=== PATIENT | female | born 1985 | race Caucasian/White ===

== ENCOUNTER 2017-01-15 21:28 | Emergency (ER) | payer OTHER ==
[~2017-01-15] VITALS: Ht 152.4 cm; Wt 70.3 kg
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
[2017-01-15] MEDS ORDERED: diphenhydrAMINE HCL 50 MG/ML VIAL IM STA (22:20)
[2017-01-15] MEDS ORDERED: CEPHALEXIN MONOHYDRATE 500 MG CAPSULE PO STA (22:20)
[2017-01-15] MEDS ORDERED: SULFAMETH/TRIMETH 800/160 MG 1 UDTAB TABLET PO STA (22:20)
[2017-01-15] MEDS ORDERED: SULFAMETH/TRIMETH 800/160 MG 1 UDTAB TABLET PO ONE (22:26)
[2017-01-15] MEDS ORDERED: predniSONE 20 MG TABLET ONE (22:26)
[2017-01-15] MEDS ORDERED: CEPHALEXIN MONOHYDRATE 500 MG CAPSULE PO ONE (22:26)
[2017-01-15] MEDS ORDERED: diphenhydrAMINE HCL 50 MG/ML VIAL ONE (22:26)
[2017-01-15] MEDS ORDERED: predniSONE 20 MG TABLET PO ONE (22:30)
--- NOTE | 2017-01-15 22:41 | NUR ---
Patient discharged to home in stable condition. Written and verbal after care instructions given. Patient verbalizes understanding of instruction.
[2017-01-15 22:48] VITALS: BP 115/69
== END 2017-01-15 22:51 | disposition home or self-care (01) ==
LOC: ER 21:28
DX: S80.862A Insect bite (nonvenomous), left lower leg, initial encounter (principal); S80.861A Insect bite (nonvenomous), right lower leg, initial encounter; L03.116 Cellulitis of left lower limb; L03.115 Cellulitis of right lower limb; W57.XXXA Bitten or stung by nonvenomous insect and other nonvenomous arthropods, initial encounter; Y93.89 Activity, other specified; Y92.89 Other specified places as the place of occurrence of the external cause; Y99.8 Other external cause status
CPT/HCPCS: 96372; 99284; A4606; J1200; J7512; Z7610

== ENCOUNTER 2017-07-07 10:38 | Emergency (ER) | payer OTHER ==
[~2017-07-07] VITALS: Ht 157.5 cm; Wt 66.2 kg
--- NOTE | 2017-07-07 10:56 | NUR ---
PT TO ED DT LOWER ABDOMINAL PAIN, SHARP, 6/10, NON RADIATING, DENIES VAGINA BLEEDING. NO HEMATURIA NOR DYSURIA. VSS
[2017-07-07] MEDS ORDERED: KETOROLAC TROMETHAMINE INJ 30 MG/ML VIAL IV ONE (11:30)
[2017-07-07] MEDS ORDERED: KETOROLAC TROMETHAMINE 15 MG/ML VIAL ONE (11:39)
[2017-07-07 11:40] LABS: BASOPHILS % (AUTO) 0.4 % (0.0-2.0); EOSINOPHILS # (AUTO) 0.1 /CMM (0.0-0.7); EOSINOPHILS % (AUTO) 1.5 % (0.0-6.0); HEMATOCRIT 44 % (33-45); HEMOGLOBIN 14.8 g/dL (11.5-14.8); LYMPHOCYTES # (AUTO) 1.6 /CMM (0.8-4.8); LYMPHOCYTES % (AUTO) 26.8 % (20.0-44.0); MEAN CORPUSCULAR HEMOGLOBIN 29 PG (26.0-33.0); MEAN CORPUSCULAR HGB CONC 34 g/dl (31.0-36.0); MEAN CORPUSCULAR VOLUME 87 fL (82-100); MONOCYTES # (AUTO) 0.4 /CMM (0.1-1.30); MONOCYTES % (AUTO) 6.9 % (2.0-12.0); NEUTROPHILS # (AUTO) 3.9 /CMM (1.8-8.9); NEUTROPHILS % (AUTO) 64.4 % (43.0-81.0); PLATELET COUNT (AUTO) 287 /CMM (150-450); RED BLOOD CELL COUNT(AUTO) 5.07 MIL/uL (4.0-5.2)
[2017-07-07 11:42] LABS: APPEARANCE,URINE Clear (CLEAR); BILIRUBIN,URINE Negative (NEGATIVE); BLOOD, URINE Trace-intact Ery/uL (NEGATIVE); COLOR,URINE Yellow (YELLOW); KETONES,URINE Negative (NEGATIVE); LEUKOCYTE ESTERASE ,URINE Trace (NEGATIVE); NITRITE, URINE Negative (NEGATIVE); PROTEIN,URINE Negative (NEGATIVE); UGLUCOSE Negative (NEGATIVE); UROBILINOGEN,URINE 0.2 EU/dL (0.2)
[2017-07-07 11:52] LABS: BACTERIA,URINE Many /HPF (None Seen); RBC,URINE 0-2 /HPF (0-2); SQUAMOUS EPITHELIAL CELL,UR Moderate /HPF (None Seen)
[2017-07-07 11:52] LABS: CALCIUM, SERUM 9.2 mg/dL (8.5-10.1); CREATININE 0.5 mg/dL (0.6-1.3); POTASSIUM 4.2 mmol/L (3.5-5.1)
--- NOTE | 2017-07-07 12:29 | NUR ---
Note alejo in EDM - 07/07/17 at 1229 by DILAN Patient discharged to home in stable condition. Written and verbal after care instructions given. Patient verbalizes understanding of instruction.IV removed. Catheter intact and site benign. Pressure and 4x4 applied to site. No bleeding noted.
--- NOTE | 2017-07-07 12:47 | NUR ---
UGO [facility]TON AT BEDSIDE
[2017-07-07 13:31] VITALS: BP 118/60
== END 2017-07-07 13:32 | disposition home or self-care (01) ==
LOC: ER 10:40
DX: N39.0 Urinary tract infection, site not specified (principal); Z91.018 Allergy to other foods
CPT/HCPCS: 36415; 76856; 80048; 81001; 84703; 85025; 87086; 96374; 99285; A4606; J1885; Z7610; 81000-TC

== ENCOUNTER 2018-08-16 12:27 | Emergency (ER) | payer OTHER ==
[~2018-08-16] VITALS: Ht 152.4 cm; Wt 56.7 kg
[2018-08-16 12:52] VITALS: BP 109/68
== END 2018-08-16 13:09 | disposition home or self-care (01) ==
LOC: ER 12:31
DX: J06.9 Acute upper respiratory infection, unspecified (principal); F17.200 Nicotine dependence, unspecified, uncomplicated; Z91.018 Allergy to other foods
CPT/HCPCS: 99283; A4606; Z7610

== ENCOUNTER 2018-12-13 15:32 | Emergency (ER) ==
[~2018-12-13] VITALS: Ht 154.9 cm; Wt 52.2 kg
[2018-12-13 15:52] VITALS: BP 116/74
[2018-12-13] MEDS ORDERED: ONDANSETRON 4 MG TAB.RAPDIS SL ONE (16:30)
== END 2018-12-13 16:43 | disposition home or self-care (01) ==
LOC: ER 15:32
DX: S06.0X0A Concussion without loss of consciousness, initial encounter (principal); S00.03XA Contusion of scalp, initial encounter; F17.200 Nicotine dependence, unspecified, uncomplicated; Z91.018 Allergy to other foods; V49.49XA Driver injured in collision with other motor vehicles in traffic accident, initial encounter; Y93.89 Activity, other specified; Y92.413 State road as the place of occurrence of the external cause; Y99.8 Other external cause status
CPT/HCPCS: Q0162

== ENCOUNTER 2018-12-16 20:00 | Emergency (ER) | payer OTHER ==
[~2018-12-16] VITALS: Ht 152.4 cm; Wt 52.2 kg
[2018-12-16] MEDS ORDERED: ONDANSETRON 4 MG TAB.RAPDIS SL ONE (20:30)
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
[2018-12-16] MEDS ORDERED: ONDANSETRON 4 MG TAB.RAPDIS ONE (20:33)
--- NOTE | 2018-12-16 20:53 | NUR ---
BACK FROM CT
[2018-12-16 21:31] VITALS: BP 101/47
--- NOTE | 2018-12-16 21:31 | NUR ---
Patient is resting comfortably in bed VSS
--- NOTE | 2018-12-16 21:50 | NUR ---
Patient discharged to home in stable condition. Written and verbal after care instructions given. Patient verbalizes understanding of instruction.
== END 2018-12-16 21:51 | disposition home or self-care (01) ==
LOC: ER 20:06
DX: S16.1XXA Strain of muscle, fascia and tendon at neck level, initial encounter (principal); S83.8X2A Sprain of other specified parts of left knee, initial encounter; F17.200 Nicotine dependence, unspecified, uncomplicated; Z91.018 Allergy to other foods; V49.69XA Unspecified car occupant injured in collision with other motor vehicles in traffic accident, initial encounter; Y93.89 Activity, other specified; Y92.413 State road as the place of occurrence of the external cause; Y99.8 Other external cause status
CPT/HCPCS: 70450; 73564; 99284; Q0162

== ENCOUNTER 2019-08-04 14:13 | Emergency (ER) | payer SELFPAY ==
[~2019-08-04] VITALS: Ht 152.4 cm; Wt 48.5 kg
--- NOTE | 2019-08-04 14:48 | NUR ---
PT AAOX4. AMBULATORY WITH STEADY GAIT. BIBSELF C/O HEADACHE "I FEEL LIKE MY EYES ARE GOING TO POP OUT OF MY HEAD." PT STATES SHE VOMITED LAST NIGHT BUT DENIES ABD PAIN. NO ACUTE DISTRESS NOTED UPON ASSESSMENT, VSS. WILL CONTINUE TO MONITOR. MD AT BEDSIDE FOR EVAL.
--- NOTE | 2019-08-04 15:17 | NUR ---
Patient discharged to home in stable condition. Written and verbal after care instructions given. Patient verbalizes understanding of instruction and RX. pt ambulatory with a steady gait. Pt was prescribed motrin for headache. vss. No acute distress noted.
[2019-08-04 15:18] VITALS: BP 116/72
== END 2019-08-04 15:19 | disposition home or self-care (01) ==
LOC: ER 14:15
DX: B34.9 Viral infection, unspecified (principal); F17.200 Nicotine dependence, unspecified, uncomplicated; Z91.018 Allergy to other foods

== ENCOUNTER 2021-06-25 04:18 | Emergency (ER) | payer OTHER ==
[~2021-06-25] VITALS: Ht 160 cm; Wt 43.1 kg
[2021-06-25 04:25] VITALS: BP 123/68
[2021-06-25] MEDS ORDERED: NITR100C6 PO (04:38)
--- NOTE | 2021-06-25 04:41 | NUR ---
Patient discharged to home in stable condition. Written and verbal after care instructions given. Patient verbalizes understanding of instruction. Pt ambulatory with a steady gait
== END 2021-06-25 04:41 | disposition home or self-care (01) ==
LOC: ER 04:20
DX: N39.0 Urinary tract infection, site not specified (principal); F12.90 Cannabis use, unspecified, uncomplicated; Z91.018 Allergy to other foods